=== PATIENT | female | born 1945 | race Caucasian/White ===

== ENCOUNTER 2017-03-29 20:02 | Emergency (ER) | payer OTHER ==
[2017-03-29 22:18] VITALS: BP 112/77
== END 2017-03-29 22:18 | disposition home or self-care (01) ==
LOC: ED 20:02
DX: J20.9 Acute bronchitis, unspecified (principal)
CPT/HCPCS: Q0092

== ENCOUNTER 2017-04-07 20:05 | Emergency (ER) | payer OTHER ==
[2017-04-07 20:11] VITALS: BP 146/95
== END 2017-04-07 23:25 | disposition left against medical advice (07) ==
LOC: ED 20:05
DX: Z53.21 Procedure and treatment not carried out due to patient leaving prior to being seen by health care provider (principal)